=== PATIENT | female | born 1970 | race Caucasian/White ===

== ENCOUNTER 2016-06-18 11:54 | Observation (INO) | payer SELFPAY ==
--- NOTE | 2016-06-18 12:51 | ER Document Report ---
ED Medical Screen (RME) - General Chief Complaint: Blurred Vision Stated Complaint: DIZZY,NAUSEA,CONFUSION Mode of Arrival: Wheelchair Information source: Patient Notes: 45-year-old female presents with complaints of dizziness and vertigo out of body experience tingling in fingers and lips that started just prior to arrival. Patient admits to nausea as well I have greeted and performed a rapid initial assessment of this patient. A comprehensive ED assessment and evaluation of the patient, analysis of test results and completion of the medical decision making process will be conducted by additional ED providers. PHYSICAL EXAMINATION: GENERAL: Well-appearing, well-nourished and in no acute distress. HEAD: Atraumatic, normocephalic. EYES: Pupils equal round extraocular movements intact, conjunctiva are normal. ENT: Nares patent NECK: Normal range of motion LUNGS: No respiratory distress Musculoskeletal: Normal range of motion NEUROLOGICAL: Normal speech, normal gait. States speech was not normal prior to arrival PSYCH: Admits to feeling anxious SKIN: Warm, Dry, normal turgor, no rashes or lesions noted. TRAVEL OUTSIDE OF THE [place] IN LAST 30 DAYS: No - Related Data Allergies/Adverse Reactions: No Known Allergies Allergy (Verified 06/18/16 11:58) Past Medical History Renal/ Medical History: Denies: Hx Peritoneal Dialysis - Immunizations Hx Diphtheria, Pertussis, Tetanus Vaccination: Yes
[2016-06-18 13:46] LABS: ABSOLUTE EOSINOPHILS # (AUTO) 0.1 10^3/uL (0.0-0.6); ABSOLUTE LYMPHOCYTES (AUTO) 1.6 10^3/uL (0.5-4.7); ABSOLUTE MONOCYTES (AUTO) 0.5 10^3/uL (0.1-1.4); ABSOLUTE NEUT (AUTO) 4.5 10^3/uL (1.7-8.2); BASOPHILS % (AUTO) 0.5 % (0-2); EOSINOPHILS % (AUTO) 1.2 % (0-6); HEMATOCRIT 38.3 % (36.0-47.0); HEMOGLOBIN 13.1 g/dL (12.0-15.5); LYMPHOCYTES % (AUTO) 24.3 % (13-45); MEAN CORPUSCULAR HEMOGLOBIN 33.8 pg (27.0-33.4); MEAN CORPUSCULAR HGB CONC 34.3 g/dL (32.0-36.0); MEAN CORPUSCULAR VOLUME 99 fl (80-97); RED BLOOD COUNT 3.89 10^6/uL (3.72-5.28); RED CELL DISTRIBUTION WIDTH 13.9 % (11.5-14.0); WHITE BLOOD COUNT 6.7 10^3/uL (4.0-10.5)
[2016-06-18 14:03] LABS: ALANINE AMINOTRANSFERASE 22 U/L (9-52); ALBUMIN 4.3 g/dL (3.5-5.0); ALKALINE PHOSPHATASE 62 U/L (38-126); ANION GAP 12 (5-19); ASPARTATE AMINO TRANSFERASE 30 U/L (14-36); BILIRUBIN,DIRECT 0.1 mg/dL (0.0-0.4); BILIRUBIN,TOTAL 0.5 mg/dL (0.2-1.3); BLOOD UREA NITROGEN 12 mg/dL (7-20); CALCIUM 9.5 mg/dL (8.4-10.2); CARBON DIOXIDE 25 mmol/L (22-30); CHLORIDE 107 mmol/L (98-107); CREATINE KINASE 173 U/L (30-135); CREATININE RESULT 0.75 mg/dL (0.52-1.25); GLUCOSE 90 mg/dL (75-110); POTASSIUM 4.8 mmol/L (3.6-5.0); SODIUM 143.9 mmol/L (137-145); TOTAL PROTEIN 6.9 g/dL (6.3-8.2)
[2016-06-18 14:15] LABS: TROPONIN I < 0.012 ng/mL
--- NOTE | 2016-06-18 14:53 | ER Document Report ---
ED General - General Chief Complaint: Blurred Vision Stated Complaint: DIZZY,NAUSEA,CONFUSION Time seen by provider: 14:49 Mode of Arrival: Wheelchair Information source: Patient Notes: This is a 45-year-old female that presents to the emergency room with episodes of chest pain with left arm tingling. Patient also states that this morning she just "didn't feel right", was having difficulty with her speech, having blurry vision and nausea. Patient does describe having symptoms of "indigestion " at the time. TRAVEL OUTSIDE OF THE [place] IN LAST 30 DAYS: No - HPI Onset: Just prior to arrival Onset/Duration: Gradual Quality of pain: Dull Severity: Moderate Pain Level: 2 Associated symptoms: denies: Chills, Fever Exacerbated by: Denies Relieved by: Denies Similar symptoms previously: No Recently seen / treated by doctor: No - Related Data Allergies/Adverse Reactions: No Known Allergies Allergy (Verified 06/18/16 11:58) Past Medical History - General Information source: Patient - Social History Smoking Status: Never Smoker Cigarette use (# per day): No Chew tobacco use (# tins/day): No Frequency of alcohol use: None Drug Abuse: None Lives with: Family Family History: None Patient has suicidal ideation: No Patient has homicidal ideation: No - Medical History Medical History: Negative Renal/ Medical History: Denies: Hx Peritoneal Dialysis Traumatic Medical History: Reports: Other - Concussion this past February Infectious Medical History: Reports: None Past Surgical History: Reports: Other - Bilateral tubal ligation - Immunizations Hx Diphtheria, Pertussis, Tetanus Vaccination: Yes Review of Systems - Review of Systems Constitutional: denies: Chills, Fever EENT: No symptoms reported Cardiovascular: See HPI Respiratory: No symptoms reported Gastrointestinal: No symptoms reported Genitourinary: No symptoms reported Female Genitourinary: No symptoms reported Musculoskeletal: No symptoms reported Skin: No symptoms reported Hematologic/Lymphatic: No symptoms reported Neurological/Psychological: See HPI Physical Exam - Vital signs Vitals: Temp Pulse Resp BP Pulse Ox 97.3 F 89 23 H 112/78 100 06/18/16 11:59 06/18/16 11:59 06/18/16 11:59 06/18/16 11:59 06/18/16 11:59 Notes: Physical exam: GENERAL: 45-year-old female, alert and oriented 3, no acute distress. HEAD: Atraumatic, normocephalic. EYES: Pupils equal round and reactive to light, extraocular movements intact, sclera anicteric, conjunctiva are normal. ENT: TMs normal, nares patent, oropharynx clear without exudates. Moist mucous membranes. NECK: Normal range of motion, supple without lymphadenopathy or JVD. LUNGS: Breath sounds clear to auscultation bilaterally and equal. No wheezes rales or rhonchi. HEART: Regular rate and rhythm without murmurs, rubs or gallops. ABDOMEN: Soft, normoactive bowel sounds. No tenderness to palpation. No guarding, no rebound. No masses appreciated. EXTREMITIES: Normal range of motion, no pitting or edema. No clubbing or cyanosis. NEUROLOGICAL: Cranial nerves II through XII grossly intact. Normal speech, motor 5 over 5, sensory grossly intact, cerebellar good, reflexes symmetrical. NIH equals 0. PSYCH: Normal mood, normal affect. SKIN: Warm, Dry, normal turgor, no rashes or lesions noted. Course - Vital Signs Vital signs: Temp Pulse Resp BP Pulse Ox 98.1 F 51 L 16 103/52 L 100 06/18/16 22:54 06/18/16 22:54 06/18/16 22:54 06/18/16 22:54 06/18/16 22:54 - Laboratory Result Diagrams: 06/18/16 12:55 06/18/16 12:55 Laboratory results interpreted by me: 06/18/16 06/18/16 12:55 12:55 MCV 99 H MCH 33.8 H Creatine Kinase 173 H - Diagnostic Test Radiology reviewed: Image reviewed - EKG Interpretation by Me Rate: Normal Rhythm: NSR - EKG shows normal sinus rhythm with a ventricular rate of 59, no acute ST-T wave changes Discharge - Discharge Clinical Impression: chest pain, speech disorder Condition: Stable Disposition: ADMITTED OBSERVATION Admitting Provider: Hospitalist - Dr. Robbins Unit Admitted: Telemetry
[2016-06-18 15:42] LABS: APPEARANCE,URINE CLEAR; BILIRUBIN,URINE NEGATIVE (NEGATIVE); GLUCOSE, URINE NEGATIVE (NEGATIVE); KETONES,URINE NEGATIVE (NEGATIVE); LEUKOCYTE ESTERASE,URINE NEGATIVE (NEGATIVE); NITRITE,URINE NEGATIVE (NEGATIVE); PROTEIN,URINE NEGATIVE (NEGATIVE); URINE SPECIFIC GRAVITY 1.004; UROBILINOGEN,URINE NEGATIVE mg/dL (<2.0)
[2016-06-18 15:53] LABS: URINE BARBITURATES SCREEN NEGATIVE; URINE METHADONE SCREEN NEGATIVE; URINE OPIATES LOW NEGATIVE; URINE PHENCYCLIDINE SCREEN NEGATIVE
[2016-06-18] MEDS ORDERED: MORPHINE SULFATE 10 MG/ML INJ IV PRN (16:33)
[2016-06-18] MEDS ORDERED: NORMAL SALINE 1000 ML 1,000 ML IV PRN (16:33)
[2016-06-18] MEDS ORDERED: DIAZEPAM 5 MG TABLET PO PRN (16:33)
[2016-06-18] MEDS ORDERED: METOPROLOL TARTRATE PF/INJ 5 MG/5 ML SDV IV PRN (16:33)
[2016-06-18] MEDS ORDERED: ONDANSETRON HCL INJ/PF 4 MG/2 ML SDV IV PRN (16:33)
[2016-06-18] MEDS ORDERED: NITROGLYCERIN 0.4 MG/TAB 25 TAB/BOTTLE SL PRN (16:33)
[2016-06-18] MEDS ORDERED: LANSOPRAZOLE 15 MG TAB.RAP.DR PO ONE (16:33)
--- NOTE | 2016-06-18 17:12 | PDOC H&P ---
History of Present Illness Admission Date/PCP: 06/18/16 15:20 History of Present Illness: CLEM MEDINA is a 45 year old female who presented to the emergency department with complaints of not feeling right. Patient reports that over the past several weeks she's been having intermittent chest pain that is worsened when laying on both right and left shoulders. Patient reports that the pain is also worsened when she takes a deep breath. Patient reports it is improved with lying flat. Patient reports pain is sharp. There is no radiation. No shortness of breath, diaphoresis. Patient does have nausea. Patient reports that 2 days chest pain was also accompanied by some left arm tingling and numbness lasting a total of a half an hour. She has had several months of nausea and also reports a significant several year year long history with diarrhea. Reports that her diarrhea is mucoid and without hematochezia or melena. She also reports an inability to have complete fecal control. She denies any associated fevers or chills. Patient also complained with her episode today that she couldn't think straight and that she smelled ammonia strongly felt as though she was seeing things and having both audio and visual hallucinations. She reports that this lasted in total for 2-3 hours and subsequently resolved on its own. She is referred to the hospital service for evaluation of chest pain. Please no medication list is automatically generated by [employer] and does not reflect an accurate description of patient's medications. Patient reports to me that she takes no [id number] medications and no prescription medications. Past Medical History Past Medical History: Meningitis Medical History: None Past Surgical History Past Surgical History: Reports: Cholecystectomy, Tubal Ligation Social History Lives with: Spouse/Significant other Smoking Status: Never Smoker Frequency of Alcohol Use: Social Amount of Alcoholic Beverages Per Day: 5 drinks twice weekly Last Alcohol Use: 06/17/16 Hx Recreational Drug Use: No Hx Prescription Drug Abuse: No - Advance Directive Resuscitation Status: Full Code Surrogate healthcare decision maker:: Celena , Family History Family History: CVA, Hypertension Parental Family History Reviewed: Yes Children Family History Reviewed: Yes Sibling(s) Family History Reviewed.: Yes Medication/Allergy Home Medications: Ciprofloxacin HCl [Cipro 250 mg Tablet] 1 tab PO BID #6 tab 10/03/13 Allergies/Adverse Reactions: No Known Allergies Allergy (Verified 06/18/16 11:58) Review of Systems Constitutional: ABSENT: chills, fever(s), headache(s), weight gain, weight loss Eyes: PRESENT: visual disturbances Ears: ABSENT: hearing changes Cardiovascular: PRESENT: as per HPI, chest pain. ABSENT: dyspnea on exertion, edema, orthropnea, palpitations Respiratory: ABSENT: cough, hemoptysis Gastrointestinal: PRESENT: diarrhea, heartburn, nausea. ABSENT: abdominal pain , constipation, dysphagia, hematemesis, hematochezia, melena, vomiting Genitourinary: ABSENT: dysuria, hematuria Musculoskeletal: ABSENT: joint swelling Integumentary: ABSENT: rash, wounds Neurological: ABSENT: abnormal gait, abnormal speech, confusion, dizziness, focal weakness, syncope Psychiatric: ABSENT: anxiety, depression, homidical ideation, suicidal ideation Endocrine: ABSENT: cold intolerance, heat intolerance, polydipsia, polyuria Hematologic/Lymphatic: ABSENT: easy bleeding, easy bruising Physical Exam Vital Signs: Temp Pulse Resp BP Pulse Ox 17 117/90 H 100 06/18/16 15:05 06/18/16 15:05 06/18/16 15:05 General appearance: PRESENT: no acute distress, well-developed, well-nourished Head exam: PRESENT: atraumatic, normocephalic Eye exam: PRESENT: conjunctiva pink, EOMI, PERRLA. ABSENT: scleral icterus Ear exam: PRESENT: normal external ear exam Mouth exam: PRESENT: moist, tongue midline Neck exam: PRESENT: thyromegaly - Mild left-sided. ABSENT: JVD, lymphadenopathy , tracheal deviation Respiratory exam: PRESENT: chest wall tenderness, clear to auscultation amarjit. ABSENT: rales, rhonchi, wheezes Cardiovascular exam: PRESENT: RRR, +S1, +S2. ABSENT: diastolic murmur, gallop, rubs, systolic murmur Pulses: PRESENT: normal dorsalis pedis pul Vascular exam: PRESENT: normal capillary refill GI/Abdominal exam: PRESENT: normal bowel sounds, soft. ABSENT: distended, firm , guarding, mass, Sharma's sign, organolmegaly, rebound, rigid, tenderness Rectal exam: PRESENT: deferred Extremities exam: PRESENT: full ROM. ABSENT: calf tenderness, clubbing, pedal edema Neurological exam: PRESENT: alert, awake, oriented to person, oriented to place , oriented to time, oriented to situation, CN II-XII grossly intact. ABSENT: motor sensory deficit Psychiatric exam: PRESENT: appropriate affect, normal mood. ABSENT: homicidal ideation, suicidal ideation Skin exam: PRESENT: dry, intact, warm. ABSENT: cyanosis, rash Results Impressions: Head CT 06/18/16 12:50 IMPRESSION: NORMAL BRAIN CT WITHOUT CONTRAST. Chest X-Ray 06/18/16 14:54 IMPRESSION: Possible COPD. Otherwise negative single-view chest. Assessment & Plan - Diagnosis (1) Chest pain Is this a current diagnosis for this admission?: YesPlan: We'll place patient on observation and rule out for acute coronary syndrome. Given patient's lack of risk factors, doubt that this is likely secondary to acute coronary syndrome. Suspect this is secondary to costochondritis due to recent increase in exercise. Patient also does complain of indigestion. Will initiate patient on a PPI. (2) Diarrhea Qualifiers: Diarrhea type: unspecified type Qualified Code(s): R19.7 - Diarrhea , unspecified Is this a current diagnosis for this admission?: YesPlan: Will obtain stool specimens for C. difficile, culture, and fecal leukocytes. Have discussed with patient initiating amitriptyline at bedtime for this. Have also discussed with patient and outpatient evaluation by GI. Will send a celiac panel concern for malabsorption in light of patient's macrocytosis. (3) Paresthesia Is this a current diagnosis for this admission?: YesPlan: Possibly secondary to anxiety. Will begin patient on Valium when necessary. Patient also has a positive Spurling's maneuver recommend that she has is evaluated as an outpatient. - Time Time Spent: 50 to 70 Minutes Medications reviewed and adjusted accordingly: Yes Anticipated discharge: Home Within: within 24 hours - Inpatient Certification Based on my medical assessment, after consideration of the patient's comorbidities, presenting symptoms, or acuity I expect that the services needed warrant INPATIENT care.: No I certify that my determination is in accordance with my understanding of Medicare's requirements for reasonable and necessary INPATIENT services [42 CFR 412.3e].: No Post Hospital Care: [facility] [employer] Documentation
[2016-06-18 17:49] LABS: CREATINE KINASE MB 0.97 ng/mL (<4.55)
[2016-06-18 17:50] LABS: TROPONIN I < 0.012 ng/mL
[2016-06-18] MEDS: LANSOPRAZOLE 30 MG TAB.RAP.DR PO SCH (20:23)
[2016-06-18] MEDS ORDERED: ATORVASTATIN CALCIUM 10 MG TABLET PO SCH (22:00)
[2016-06-18] MEDS ORDERED: AMITRIPTYLINE HCL 10 MG TABLET PO SCH (22:00)
[2016-06-19 00:16] LABS: CREATINE KINASE MB 0.71 ng/mL (<4.55)
[2016-06-19 00:24] LABS: TROPONIN I < 0.012 ng/mL
[2016-06-19] MEDS: LANSOPRAZOLE 30 MG TAB.RAP.DR PO SCH (05:22)
[2016-06-19 05:39] LABS: CHOLESTEROL 120.57 mg/dL (0-200); Direct HDL 83 mg/dL (>40); TRIGLYCERIDES 58 mg/dL (<150)
[2016-06-19 05:45] LABS: CREATINE KINASE MB 0.57 ng/mL (<4.55)
[2016-06-19 06:17] LABS: TROPONIN I < 0.012 ng/mL
[2016-06-19 06:21] LABS: DIRECT LDL < 30 mg/dL (<100)
[2016-06-19] MEDS ORDERED: DIPHENOXYLATE HCL/ATROP SULF 2.5-0.025 MG TABLET PO PRN (07:35)
[2016-06-19] MEDS ORDERED: PSYLLIUM SEED-SF 5.85 GM PACKET PO SCH ×2 (07:45)
[2016-06-19 09:15] VITALS: BP 107/60
[2016-06-19] MEDS ORDERED: CELECOXIB 200 MG CAPSULE PO SCH (10:00)
[2016-06-19] MEDS ORDERED: ASPIRIN 325 MG TABLET, ENT COATED PO SCH (10:00)
[2016-06-19] MEDS ORDERED: LISINOPRIL 5 MG TABLET PO SCH (10:00)
[2016-06-19] MEDS ORDERED: MULTIVITAMINS W-IRON TABLET, CHEWABLE PO SCH (10:00)
[2016-06-19] MEDS ORDERED: LACTOBACILLUS ACIDOPHILUS 250 MG TAB PO SCH (10:00)
--- NOTE | 2016-06-19 10:22 | EKG REPORT ---
SEVERITY:- NORMAL ECG - SINUS RHYTHM : Confirmed by: Mony Tripp 19-Jun-2016 10:21:53
--- NOTE | 2016-06-19 18:45 | PDOC DISCHARGE SUMMARY ---
General - Admit/Disc Date/PCP Admission Date/Primary Care Provider: 06/18/16 16:33 Discharge Date: 06/19/16 - Discharge Diagnosis (1) Chest pain Is this a current diagnosis for this admission?: Yes (2) Diarrhea Is this a current diagnosis for this admission?: Yes (3) Paresthesia Is this a current diagnosis for this admission?: Yes (4) Costochondritis, acute Is this a current diagnosis for this admission?: Yes (5) Adult celiac disease Is this a current diagnosis for this admission?: No - Additional Information Resuscitation Status: Full Code Discharge Diet: Regular Discharge Activity: Activity As Tolerated, Slowly Increase Activity Home Medications: Acidoph/L.bulg/Bif.b/S.thermop [Bacid Caplet] 1 each PO DAILY #30 tablet Amitriptyline HCl [Elavil 10 mg Tablet] 10 mg PO QHS #30 tablet 06/19/16 Celecoxib [Celebrex 200 mg Capsule] 200 mg PO BID #30 capsule 06/19/16 Diphenoxylate HCl/Atrop Sulf [Lomotil 2.5 mg Tablet] 1 tab PO QIDP PRN #30 tablet 06/19/16 Ranitidine HCl [Zantac 75 mg Tablet] 75 mg PO BIDP PRN #60 tablet 06/19/16 History of Present Illness History of Present Illness: CLEM MEDINA is a 45 year old female who presented to the emergency department with complaints of not feeling right. Patient reports that over the past several weeks she's been having intermittent chest pain that is worsened when laying on both right and left shoulders. Patient reports that the pain is also worsened when she takes a deep breath. Patient reports it is improved with lying flat. Patient reports pain is sharp. There is no radiation. No shortness of breath, diaphoresis. Patient does have nausea. Patient reports that 2 days chest pain was also accompanied by some left arm tingling and numbness lasting a total of a half an hour. She has had several months of nausea and also reports a significant several year year long history with diarrhea. Reports that her diarrhea is mucoid and without hematochezia or melena. She also reports an inability to have complete fecal control. She denies any associated fevers or chills. Patient also complained with her episode today that she couldn't think straight and that she smelled ammonia strongly felt as though she was seeing things and having both audio and visual hallucinations. She reports that this lasted in total for 2-3 hours and subsequently resolved on its own. She is referred to the hospital service for evaluation of chest pain. Hospital Course Hospital Course: Patient was placed on observation and ruled out for acute coronary syndrome. In light of patient's lack of risk factors, stress test is deferred to outpatient status. Patient's cholesterol is remarkably good. Likely patient's chest pain which is reproducible on exam secondary costochondritis due to recent increase in physical activity. Patient also described indigestion and was advised to use Zantac [id number] when necessary. She is advised to follow with her primary care physician for a referral to GI, as patient has had a year-long history of diarrhea. She was given prescription for Lomotil. I have advised patient at this time to follow a lactose-free gluten-free diet and keep a food journal to present to GI. She is advised to return for any worsening symptoms. She is advised that it is not uncommon in her age group for malignancy to occur. She is advised to obtain a colonoscopy. Patient is discharged in stable condition. Physical Exam Vital Signs: Temp Pulse Resp BP Pulse Ox 98.6 F 62 16 107/60 100 06/19/16 09:10 06/19/16 09:10 06/19/16 09:10 06/19/16 09:10 06/19/16 09:10 Intake & Output 06/18/16 06/19/16 06/20/16 06:59 06:59 06:59 Intake Total 1765 Balance 1765 Weight 60.8 kg Exam: General: Awake alert and oriented x3, no acute respiratory distress HEENT: AT/NC, PERRL, EOMI, oropharynx is moist, pink, no scleral icterus, no conjunctival injection Neck: No JVD, trachea midline Chest: Clear to auscultation bilaterally, no wheezes rhonchi or rales CV: Regular rate and rhythm, normal S1 and S2, no murmur, rub, or gallop Abdomen: Soft, nontender to palpation, nondistended, active bowel sounds; no rebound, rigidity, or guarding Extremities: No cyanosis, clubbing or edema Neuro: Cranial nerves II through XII are grossly intact without focal deficits; awake alert and oriented x3 Psych: Normal mood and affect Results Laboratory Results: 06/18/16 06/18/16 06/19/16 21:15 21:15 05:02 Triglycerides 58 Cholesterol 120.57 LDL Cholesterol Direct < 30 VLDL Cholesterol 12.0 HDL Cholesterol 83 Stool Occult Blood NEGATIVE Stool for White Cells RARE H 06/18/16 06/18/16 06/18/16 17:00 17:00 23:15 Creatine Kinase 150 H CK-MB (CK-2) 0.97 0.71 Troponin I < 0.012 < 0.012 06/19/16 05:02 Creatine Kinase CK-MB (CK-2) 0.57 Troponin I < 0.012 Impressions: Head CT 06/18/16 12:50 IMPRESSION: NORMAL BRAIN CT WITHOUT CONTRAST. Chest X-Ray 06/18/16 14:54 IMPRESSION: Possible COPD. Otherwise negative single-view chest. Qualifiers PATEINT BEING DISCHARGED WITH ANY OF THE FOLLOWING DIAGNOSIS?: No Plan Time Spent: Less than 30 Minutes
[2016-06-21 14:25] LABS: DEAMIDATED GLIADIN IGA AB 3 units (0-19); DEAMIDATED GLIADIN IGG AB 5 units (0-19); IMMUNOGLOBULIN A 2 232 mg/dL (87-352); T-TRANSGLUTAMINASE (TTG) IGG <2 U/mL (0-5)
== END 2016-06-19 10:01 | disposition home or self-care (01) ==
LOC: ER 11:54 → EH 15:20 → UNDOADMOB 15:20 → EH 16:33 → 4N 18:07
PROVIDERS: ADMIT Family Medicine; ATTEND Family Medicine
DX: R07.9 Chest pain, unspecified (principal); R19.7 Diarrhea, unspecified; R20.9 Unspecified disturbances of skin sensation; M94.0 Chondrocostal junction syndrome [Tietze]; K90.0 Celiac disease; R20.0 Anesthesia of skin; R11.0 Nausea; R44.0 Auditory hallucinations; R44.1 Visual hallucinations; R43.8 Other disturbances of smell and taste; K30 Functional dyspepsia; R12 Heartburn; E01.0 Iodine-deficiency related diffuse (endemic) goiter; H53.8 Other visual disturbances; R47.9 Unspecified speech disturbances; K92.89 Other specified diseases of the digestive system; Z86.61 Personal history of infections of the central nervous system; Z98.51 Tubal ligation status; Z90.49 Acquired absence of other specified parts of digestive tract; Z82.49 Family history of ischemic heart disease and other diseases of the circulatory system; Z87.820 Personal history of traumatic brain injury
CPT/HCPCS: 93005; 99285; 36415 ×2; 87045; 89055; 87205; 82553 ×2; 82962; 82550; 84702; 84443; 85025; 82272; 80053; 81001; 84484 ×2; 83520 ×5; 80307; 87493 ×2; 80061; 71010; 70450; 93010; G0378 ×3; J3490 ×2; J7030

== ENCOUNTER 2016-09-08 10:19 | Emergency (ER) | payer OTHER ==
[2016-09-08 10:24] VITALS: BP 133/76
[2016-09-08] MEDS ORDERED: LIDOCAINE 1% INJ-PF (10 MG/ML) 30 ML SDV INJ ONE (10:35)
[2016-09-08] MEDS ORDERED: DIPH/PERTUSS(ACELL)/TETANUS VAC/PF 0.5 ML SYR (>=10YO) IM ONE (10:35)
--- NOTE | 2016-09-08 10:37 | ER Document Report ---
HPI - HPI Patient complains to provider of: ankle lac Onset: Just prior to arrival Onset/Duration: Sudden Quality of pain: No pain Pain Level: Denies Context: Patient dropped a porcelain bowl cutting her left lateral ankle. Patient is uncertain when her last tetanus immunization was. Associated Symptoms: Other - Left ankle laceration Exacerbated by: Movement Relieved by: Denies Similar symptoms previously: No Recently seen / treated by doctor: No - ROS ROS below otherwise negative: Yes Systems Reviewed and Negative: Yes All other systems reviewed and negative - CONSTITUTIONAL Constitutional: DENIES: Fever - NEURO Neurology: DENIES: Weakness - GASTROINTESTINAL Gastrointestinal: DENIES: Nausea - REPRODUCTIVE Reproductive: DENIES: : - DERM Skin Color: Normal Skin Problems: Laceration Past Medical History - General Information source: Patient - Social History Smoking Status: Never Smoker Frequency of alcohol use: Occasional Drug Abuse: None Occupation: None Lives with: Family Family History: None Patient has suicidal ideation: No Patient has homicidal ideation: No - Medical History Medical History: Other - Celiac Renal/ Medical History: Denies: Hx Peritoneal Dialysis Past Surgical History: Reports: Hx Cholecystectomy, Hx Tubal Ligation, Other - Bilateral tubal ligation - Immunizations Hx Diphtheria, Pertussis, Tetanus Vaccination: Yes Vertical Provider Document - CONSTITUTIONAL Agree With Documented VS: Yes Exam Limitations: No Limitations General Appearance: WD/WN, No Apparent Distress - INFECTION CONTROL TRAVEL OUTSIDE OF THE [place] IN LAST 30 DAYS: No - HEENT HEENT: Atraumatic, Normocephalic - RESPIRATORY Respiratory: No Respiratory Distress O2 Sat by Pulse Oximetry: 99 - CARDIOVASCULAR Pulses: Normal: Dorsalis pedis - MUSCULOSKELETAL/EXTREMETIES Musculoskeletal/Extremeties: MAEW, FROM - NEURO Level of Consciousness: Awake, Alert, Appropriate Motor/Sensory: No Motor Deficit - DERM Integumentary: Warm, Dry, Laceration - Patient with 2 lacerations to lateral aspect of left ankle over the lateral malleolar area. Inferior laceration 1 cm diameter, superior laceration 2 cm Course - Vital Signs Vital signs: Temp Pulse Resp BP Pulse Ox 97.7 F 64 18 133/76 H 99 09/08/16 10:23 09/08/16 10:23 09/08/16 10:23 09/08/16 10:23 09/08/16 10:23 Procedures - Laceration/Wound Repair Left Ankle Wound length (cm): 2 Wound's Depth, Shape: Linear Laceration pre-procedure: Other - Chlorhexidine Wound explored: Clean, No foreign body removed Wound Debrided: Minimal Wound Repaired With: Sutures Suture Size/Type: 5:0, Prolene Number of Sutures: 4 Post-procedure wound care: Sterile dressing applied Post-procedure NV exam normal: Yes Complications: No Notes: 09/08/16 11:30 Superior 2 cm laceration closed with 3 sutures, inferior 1 cm laceration closed with 1 suture Discharge - Discharge Clinical Impression: Laceration of ankle Qualifiers: Encounter type: initial encounter Laterality: left Qualified Code(s): S91.012A - Laceration without foreign body, left ankle, initial encounter Condition: Stable Disposition: HOME, SELF-CARE Instructions: Antibiotic Ointment Protection ([facility]), Laceration Care ([facility]), Tetanus Immunization Given ([facility]) Additional Instructions: Return immediately for any new or worsening symptoms Followup with your primary care provider, call tomorrow to make a followup appointment Suture removal in 12 days Referrals: [facility] [Provider Group] - Follow up as needed
== END 2016-09-08 11:36 | disposition home or self-care (01) ==
LOC: ER 10:19
PROC: 0HQLXZZ Repair Left Lower Leg Skin, External Approach (ICD-10-PCS; principal; 2016-09-08)
DX: S91.012A Laceration without foreign body, left ankle, initial encounter (principal); W26.8XXA Contact with other sharp object(s), not elsewhere classified, initial encounter
CPT/HCPCS: 99282; 90471; 90715; 12002; J3490

== ENCOUNTER 2016-10-22 12:30 | Emergency (ER) | payer OTHER ==
[2016-10-22 12:36] VITALS: BP 145/60
[2016-10-22] MEDS ORDERED: DIAZEPAM INJ 10 MG/2 ML DISP.SYRIN IM ONE (13:18)
[2016-10-22] MEDS ORDERED: DEXAMETHASONE SOD PHOS INJ 10 MG/1 ML VIAL IM ONE (13:18)
--- NOTE | 2016-10-22 13:20 | ER Document Report ---
ED General - General Chief Complaint: Low Back Pain Stated Complaint: BACK PAIN Time Seen by Provider: 10/22/16 12:57 Mode of Arrival: Ambulatory Information source: Patient Notes: 46-year-old female presents with complaints of low back pain over the past 2 weeks. Patient denies any heavy lifting but does note that she was working on her lawn when it first started. Patient denies any cauda equina concerns. Patient does note sciatic nerve pain. Patient notes that she has been trying to stretch it but the pain does not seem to improve TRAVEL OUTSIDE OF THE [place] IN LAST 30 DAYS: No - HPI Onset: Other Onset/Duration: Persistent Quality of pain: Achy Severity: Mild Pain Level: 2 Associated symptoms: Body/muscle aches Exacerbated by: Movement, Walking Relieved by: Denies Similar symptoms previously: No Recently seen / treated by doctor: No - Related Data Allergies/Adverse Reactions: butorphanol [From Stadol] Allergy (Verified 10/22/16 13:13) ketorolac [From Toradol] Allergy (Verified 10/22/16 13:03) Past Medical History - Social History Smoking Status: Never Smoker Cigarette use (# per day): No Chew tobacco use (# tins/day): No Smoking Education Provided: No Frequency of alcohol use: None Drug Abuse: None Family History: None Renal/ Medical History: Denies: Hx Peritoneal Dialysis Past Surgical History: Reports: Hx Cholecystectomy, Hx Tubal Ligation, Other - Bilateral tubal ligation - Immunizations Hx Diphtheria, Pertussis, Tetanus Vaccination: Yes Review of Systems - Review of Systems Notes: REVIEW OF SYSTEMS: CONSTITUTIONAL : Denies fever, chills, or sweats. Denies recent illness. EENT: Denies eye, ear, throat, or mouth pain or symptoms. Denies nasal or sinus congestion or discharge. Denies throat, tongue, or mouth swelling or difficulty swallowing. CARDIOVASCULAR: Denies chest pain. Denies palpitations or racing or irregular heart beat. Denies ankle edema. RESPIRATORY: Denies cough, cold, or chest congestion. Denies shortness of breath, difficulty breathing, or wheezing. GASTROINTESTINAL: Denies abdominal pain or distention. Denies nausea, vomiting , or diarrhea. Denies blood in vomitus, stools, or per rectum. Denies black, tarry stools. Denies constipation. GENITOURINARY: Denies difficulty urinating, painful urination, burning, frequency, blood in urine, or discharge. FEMALE GENITOURINARY: Denies vaginal bleeding, heavy or abnormal periods, irregular periods. Denies vaginal discharge or odor. MUSCULOSKELETAL: Admits to low back pain SKIN: Denies rash, lesions or sores. HEMATOLOGIC : Denies easy bruising or bleeding. LYMPHATIC: Denies swollen, enlarged glands. NEUROLOGICAL: Denies confusion or altered mental status. Denies passing out or loss of consciousness. Denies dizziness or lightheadedness. Denies headache. Denies weakness or paralysis or loss of use of either side. Denies problems with gait or speech. Denies sensory loss, numbness, or tingling. Denies seizures. PSYCHIATRIC: Denies anxiety or stress. Denies depression, suicidal ideation, or homicidal ideation. ALL OTHER SYSTEMS REVIEWED AND NEGATIVE. PHYSICAL EXAMINATION: GENERAL: Well-appearing, well-nourished and in no acute distress. HEAD: Atraumatic, normocephalic. EYES: Pupils equal round and reactive to light, extraocular movements intact, conjunctiva are normal. ENT: Nares patent, oropharynx clear without exudates. Moist mucous membranes. NECK: Normal range of motion, supple without lymphadenopathy LUNGS: Breath sounds clear to auscultation bilaterally and equal. No wheezes rales or rhonchi. HEART: Regular rate and rhythm without murmurs ABDOMEN: Soft, nontender, nondistended abdomen. No guarding, no rebound. No masses appreciated. Female : deferred Musculoskeletal: Reproducible back tenderness generalized lumbar region with movement sidebending and palpation. Patient has sciatic nerve tenderness bilateral NEUROLOGICAL: Cranial nerves grossly intact. Normal speech, normal gait. Normal sensory, motor exams PSYCH: Normal mood, normal affect. SKIN: Warm, Dry, normal turgor, no rashes or lesions noted. Dictation was performed using [employer] voice recognition software Physical Exam - Vital signs Vitals: Temp Pulse Resp BP Pulse Ox 98.3 F 59 L 15 145/60 H 100 10/22/16 12:33 10/22/16 12:33 10/22/16 12:33 10/22/16 12:33 10/22/16 12:33 Course - Re-evaluation Re-evalutation: 10/22/16 20:22 Patient has no signs of cauda equina, she is otherwise well-appearing no distress. I will treat her with medications to help resolve the spasm and otherwise she is stable for discharge to follow-up with her primary care physician or to return immediately if there is any worsening symptoms Patient is able to ambulate with no difficulty After performing a Medical Screening Examination, I estimate there is LOW risk for EXPANDING OR RUPTURED ABDOMINAL AORTIC ANEURYSM, CAUDA EQUINA SYNDROME, EPIDURAL MASS LESION, or HERNIATED DISK CAUSING SEVERE SPINAL STENOSIS, thus I consider the discharge disposition reasonable. I have reevaluated this patient multiple times and no significant life threatening changes are noted. The patient and I have discussed the diagnosis and risks, and we agree with discharging home and close follow-up. We also discussed returning to the Emergency Department immediately if new or worsening symptoms occur with the understanding that symptoms and presentations can change. We have discussed the symptoms which are most concerning (e.g., saddle anesthesia, urinary or bowel incontinence or retention, changing or worsening pain) that necessitate immediate return. - Vital Signs Vital signs: Temp Pulse Resp BP Pulse Ox 98.3 F 59 L 15 145/60 H 100 10/22/16 12:33 10/22/16 12:33 10/22/16 12:33 10/22/16 12:33 10/22/16 12:33 Discharge - Discharge Clinical Impression: Muscle spasm Back pain Qualifiers: Back pain location: low back pain Chronicity: acute Back pain laterality: bilateral Sciatica presence: with sciatica Sciatica laterality: bilateral sciatica Qualified Code(s): M54.42 - Lumbago with sciatica, left side; M54.41 - Lumbago with sciatica, right side Condition: Stable Disposition: HOME, SELF-CARE Instructions: Low Back Pain ([facility]) Additional Instructions: Follow up with your physician tomorrow for further care or return to the ED IMMEDIATELY if symptoms worsen or new concerns occur. If you cannot afford to follow up with your primary care physician a list of low cost clinics have been provided at the end of your discharge papers as well. Prescriptions: Diazepam [Valium 5 mg Tablet] 5 mg PO QIDP PRN #15 tablet PRN Reason: Prednisone [Deltasone 20 mg Tablet] 3 tab PO DAILY 5 Days tablet
== END 2016-10-22 13:30 | disposition home or self-care (01) ==
LOC: ER 12:30
DX: M62.838 Other muscle spasm (principal); M54.42 Lumbago with sciatica, left side; M54.41 Lumbago with sciatica, right side; Z90.49 Acquired absence of other specified parts of digestive tract; Z98.51 Tubal ligation status
CPT/HCPCS: 99283; 96372; J3360; J1100

== ENCOUNTER 2017-08-02 08:50 | Emergency (ER) | payer SELFPAY ==
--- NOTE | 2017-08-02 09:58 | ER Document Report ---
ED Neck/Back Problem - General Chief Complaint: Back Pain Stated Complaint: BACK PAIN Time Seen by Provider: 08/02/17 09:10 Mode of Arrival: Ambulatory Information source: Patient Notes: 46-year-old female presents to ED for complaint of back pain started 3 weeks ago. She states she has been stretching and using ibuprofen and Tylenol with no relief. She states she cannot lay on the right due to the pain. She states her period is very irregular and she is thinks that her last period was like in in the febrile given April. She states that was no injury. TRAVEL OUTSIDE OF THE [place] IN LAST 30 DAYS: No - HPI Patient complains to provider of: Pain, Lower back Onset: Other - About 3 weeks Onset: Gradual Timing: Waxing and waning Quality of pain: Sharp Pain Level: 4 Context: Bending, Lifting, Turning Recent injury: No Associated symptoms: Radiation to leg, Lower back pain. denies: Constipation, Fever, Incontinence, Numbness/tingling, Sensory loss, Sweaty, Unable to urinate , Upper back pain Exacerbated by: Movement of trunk Relieved by: Nothing Similar symptoms previously: Yes Recently seen / treated by doctor: No - Related Data Allergies/Adverse Reactions: butorphanol [From Stadol] Allergy (Verified 08/02/17 08:52) ketorolac [From Toradol] Allergy (Verified 08/02/17 08:52) Past Medical History - General Information source: Patient - Social History Smoking Status: Never Smoker Cigarette use (# per day): No Chew tobacco use (# tins/day): No Smoking Education Provided: No Frequency of alcohol use: Social Drug Abuse: None Occupation: No work Lives with: Family Family History: None Patient has suicidal ideation: No Patient has homicidal ideation: No - Past Medical History Cardiac Medical History: Reports: Other - Actual valve prolapse resolved Pulmonary Medical History: Reports: None Neurological Medical History: Reports: None Endocrine Medical History: Reports: None Renal/ Medical History: Reports: None Malignancy Medical History: Reports: None GI Medical History: Reports: Other - Celiac Musculoskeltal Medical History: Reports None Skin Medical History: Reports None Psychiatric Medical History: Reports: None Traumatic Medical History: Reports: None Infectious Medical History: Reports: None Past Surgical History: Reports: Hx Breast Surgery - Augmentation, Hx Cholecystectomy, Hx Tubal Ligation - Immunizations Hx Diphtheria, Pertussis, Tetanus Vaccination: Yes Review of Systems - Review of Systems Constitutional: No symptoms reported EENT: No symptoms reported Cardiovascular: No symptoms reported Respiratory: No symptoms reported Gastrointestinal: No symptoms reported Genitourinary: No symptoms reported Female Genitourinary: No symptoms reported Musculoskeletal: Back pain, Muscle pain, Muscle stiffness Skin: No symptoms reported Hematologic/Lymphatic: No symptoms reported Neurological/Psychological: Numbness, Tingling -: Yes All other systems reviewed and negative Physical Exam - Vital signs Vitals: Temp Pulse Resp BP Pulse Ox 98.2 F 65 18 138/91 H 99 08/02/17 09:09 08/02/17 09:09 08/02/17 09:09 08/02/17 09:09 08/02/17 09:09 Interpretation: Normal - General General appearance: Appears well, Alert - HEENT Head: Normocephalic, Atraumatic Eyes: Normal Pupils: PERRL - Respiratory Respiratory status: No respiratory distress Chest status: Nontender Breath sounds: Normal Chest palpation: Normal - Cardiovascular Rhythm: Regular Heart sounds: Normal auscultation Murmur: No - Abdominal Inspection: Normal Distension: No distension Bowel sounds: Normal Tenderness: Nontender Organomegaly: No organomegaly - Back Back: Normal, Tender. No: Deformity/step-off, CVA tenderness, Vertebra tenderness, Scars, Scoliosis, Wounds - Extremities General upper extremity: Normal inspection, Nontender, Normal color, Normal ROM , Normal temperature General lower extremity: Normal inspection, Nontender, Normal color, Normal ROM , Normal temperature, Normal weight bearing. No: Avril's sign - Neurological Neuro grossly intact: Yes Cognition: Normal Orientation: AAOx4 [place] Coma Scale Eye Opening: Spontaneous [place] Coma Scale Verbal: Oriented George Coma Scale Motor: Obeys Commands George Coma Scale Total: 15 Speech: Normal Motor strength normal: LUE, RUE, LLE, RLE Sensory: Normal - Psychological Associated symptoms: Normal affect, Normal mood - Skin Skin Temperature: Warm Skin Moisture: Dry Skin Color: Normal Course - Re-evaluation Re-evalutation: 08/02/17 21:44 Discussed x-rays with patient and written report of x-rays given to patient. Patient was treated with dexamethasone and Lidoderm patch. After performing a Medical Screening Examination, I estimate there is LOW risk for INTRACRANIAL HEMORRHAGE, UNSTABLE SPINE FRACTURE, CENTRAL CORD SYNDROME, CAUDA EQUINA, THORACIC AORTIC DISSECTION, PNEUMOTHORAX, PERFORATED BOWEL, RUPTURED ABDOMINAL AORTIC ANEURYSM, ACUTE TENDON RUPTURE, COMPARTMENT SYNDROME, or OPEN FRACTURE, thus I consider the discharge disposition reasonable. Also, there is no evidence or peritonitis, sepsis, or toxicity. I have reevaluated this patient multiple times and no significant life threatening changes are noted. The patient and I have discussed the diagnosis and risks, and we agree with discharging home to follow-up with their primary doctor with the understanding that symptoms and presentations can change. We also discussed returning to the Emergency Department immediately if new or worsening symptoms occur. We have discussed the symptoms which are most concerning (e.g., bloody stool, fever, changing or worsening pain, vomiting) that necessitate immediate return. - Vital Signs Vital signs: Temp Pulse Resp BP Pulse Ox 97.9 F 58 L 16 137/82 H 99 08/02/17 12:17 08/02/17 12:17 08/02/17 12:17 08/02/17 12:17 08/02/17 12:17 - Laboratory Result Diagrams: 08/02/17 09:30 Laboratory results interpreted by me: 08/02/17 09:30 AST 74 H ALT 53 H - Diagnostic Test Radiology reviewed: Image reviewed, Reports reviewed Discharge - Discharge Clinical Impression: Back pain Qualifiers: Back pain location: low back pain Chronicity: unspecified Back pain laterality : right Sciatica presence: with sciatica Sciatica laterality: sciatica of right side Qualified Code(s): M54.41 - Lumbago with sciatica, right side Condition: Stable Disposition: HOME, SELF-CARE Instructions: Family Physicians / Practices Additional Instructions: LOW BACK PAIN: Three out of every four people will have an episode of disabling back pain during their lifetime. Most commonly the pain is due to straining of the muscles and ligaments in the low back. Usual treatment includes: (1) Rest on a firm surface. Avoid lying on your stomach. (2) Ice pack the painful area. After a few days, gentle heat may be used intermittently to relax the area, or ice packs can be continued. (3) Medication may be needed -- muscle relaxers and antiinflammatory medicines are commonly used. (4) As the back improves, exercises are prescribed to strengthen the back and abdominal muscles. Your doctor will advise you on the proper care for your back at each stage in your recovery. You may be better in a few days -- or healing may take several weeks. If new symptoms of a "herniated disc" (radiation of pain, numbness, or tingling down the back of the leg or weakness in the leg) occur, you should be re-examined. Further testing may be necessary. MUSCLE RELAXERS: Muscle relaxing medications are usually prescribed for acute muscle spasm or injury to the neck and back. They are often combined with antiinflammatory pain medication for increased relief. You may stop the muscle relaxer when the pain and stiffness have improved. Start the medication again if spasms recur. Muscle relaxers may cause drowsiness, especially with the first dose. Do not operate machinery or drive while under the effects of the medication. Most muscle relaxers last up to 24 hours. Do not combine the medication with alcohol. ICE PACKS: Apply ice packs frequently against the painful area. Many different schedules are recommended, such as "20 minutes on, 20 minutes off" or "one hour ice, two hours rest." If you need to work, you may need to go longer between ice treatments. You should plan to have the area ice packed AT LEAST one fourth of the time. The ice should be applied over the wrap, tape, or splint, or over a layer of cloth -- not directly against the skin. Some ice bags have a built-in cloth and can be put directly on the skin. WARM PACKS: After approximately two days, apply gentle heat (such as a heating pad or hot water bottle) for about 20 to 30 minutes about every two hours -- at least four times daily. Warmth and elevation will help you make a more rapid recovery , and will ease the pain considerably. Do not use HOT heat, and never apply heat for longer than 30 minutes. The continuous heat can invisibly damage skin and muscles -- even when no burn is seen on the surface. Damaged muscles can make you MORE sore. STEROID MEDICATION: You have been given a medicine of the cortisone/steroid class. This medication is used to control inflammation or allergy. It is usually only given for a short period of time, until the acute process subsides. There are usually no side effects from short-term use of cortisone-like medications. Some persons feel an increased sense of well-being and are not sleepy at bedtime. Long-term use of cortisone medications is best avoided, unless required for a severe condition. If your condition does not remit, or relapses after the course of corticosteroid medication, you should consult your physician. FOLLOW-UP CARE: If you have been referred to a physician for follow-up care, call the physician s office for an appointment as you were instructed or within the next two days. If you experience worsening or a significant change in your symptoms, notify the physician immediately or return to the Emergency Department at any time for re-evaluation. Prescriptions: Ibuprofen 600 mg PO Q8HP PRN #20 tablet PRN Reason: Lidocaine [Lidoderm 5% (700 mg) Transdermal Patch] 1 patch TP DAILY #30 adh..patch Prednisone [Deltasone 20 mg Tablet] 3 tab PO DAILY 4 Days tablet Forms: Elevated Blood Pressure
[2017-08-02 10:01] LABS: APPEARANCE,URINE SLIGHTLY-CLOUDY; BILIRUBIN,URINE NEGATIVE (NEGATIVE); COLOR,URINE YELLOW; GLUCOSE, URINE NEGATIVE (NEGATIVE); KETONES,URINE NEGATIVE (NEGATIVE); LEUKOCYTE ESTERASE,URINE NEGATIVE (NEGATIVE); NITRITE,URINE NEGATIVE (NEGATIVE); PROTEIN,URINE NEGATIVE (NEGATIVE); URINE SPECIFIC GRAVITY 1.019; UROBILINOGEN,URINE NEGATIVE mg/dL (<2.0)
[2017-08-02 10:21] LABS: ALANINE AMINOTRANSFERASE 53 U/L (9-52); ALBUMIN 4.3 g/dL (3.5-5.0); ALKALINE PHOSPHATASE 52 U/L (38-126); ANION GAP 10 (5-19); ASPARTATE AMINO TRANSFERASE 74 U/L (14-36); BILIRUBIN,DIRECT 0.2 mg/dL (0.0-0.4); BILIRUBIN,TOTAL 0.6 mg/dL (0.2-1.3); BLOOD UREA NITROGEN 16 mg/dL (7-20); CALCIUM 9.7 mg/dL (8.4-10.2); CARBON DIOXIDE 29 mmol/L (22-30); CHLORIDE 104 mmol/L (98-107); GLUCOSE 91 mg/dL (75-110); POTASSIUM 4.4 mmol/L (3.6-5.0); SODIUM 143.2 mmol/L (137-145); TOTAL PROTEIN 7.4 g/dL (6.3-8.2)
--- NOTE | 2017-08-02 11:22 | RADIOLOGY REPORT (SQ) ---
EXAM DESCRIPTION: PELVIS AP COMPLETED DATE/TIME: 08/02/2017 11:10 am REASON FOR STUDY: right low back pain pain for 3 weeks in the right lower back/ sacrum region withou t specific injury COMPARISON: Lumbar spine films same date NUMBER OF VIEWS: One view TECHNIQUE: AP Pelvis LIMITATIONS: None. FINDINGS: MINERALIZATION: Normal. HIPS: No acute fracture or dislocation. No worrisome bone lesions. PELVIS AND SACRUM: No acute fracture or dislocation. No worrisome bone lesions. PUBIS AND ISCHIUM: No acute fracture. LOWER LUMBAR SPINE: No significant findings as visualized. SOFT TISSUES: No findings. OTHER: No other significant finding. IMPRESSION: NEGATIVE STUDY OF THE PELVIS. TECHNICAL DOCUMENTATION: JOB ID: [id number]- All Rights Reserved Reading location - IP/workstation name: [email or web address]
--- NOTE | 2017-08-02 11:23 | RADIOLOGY REPORT (SQ) ---
EXAM DESCRIPTION: L SPINE WHOLE COMPLETED DATE/TIME: 08/02/2017 11:10 am REASON FOR STUDY: low right back pain COMPARISON: AP pelvis same date NUMBER OF VIEWS: Five views including obliques. TECHNIQUE: AP, lateral, oblique, and sacral radiographic images acquired of the lumbar spine. LIMITATIONS: None. FINDINGS: MINERALIZATION: Normal. SEGMENTATION: Normal. No transitional anatomy. ALIGNMENT: Normal. VERTEBRAE: Maintained height. No fracture or worrisome bone lesion. DISCS: Preserved height. No significant osteophytes or end plate irregularity. POSTERIOR ELEMENTS: Pedicles and facets are intact. No pars defect or posterior arch defects. HARDWARE: None in the spine. Clips right upper quadrant post cholecystectomy PARASPINAL SOFT TISSUES: Normal. PELVIS: Intact as visualized. No fractures or worrisome bone lesions. SI joints intact. OTHER: No other significant finding. IMPRESSION: NORMAL 5 VIEW LUMBAR SPINE. TECHNICAL DOCUMENTATION: JOB ID: [id number] [employer]- All Rights Reserved Reading location - IP/workstation name: [email or web address]
[2017-08-02] MEDS ORDERED: LIDOCAINE 5% (700 MG) TRANSDERMAL ADH..PATCH TP ONE (11:45)
[2017-08-02] MEDS ORDERED: DEXAMETHASONE SOD PHOS INJ 10 MG/1 ML VIAL IM ONE (11:45)
[2017-08-02 12:18] VITALS: BP 137/82
== END 2017-08-02 12:17 | disposition home or self-care (01) ==
LOC: ER 08:50
DX: M54.41 Lumbago with sciatica, right side (principal); N92.6 Irregular menstruation, unspecified; Z88.5 Allergy status to narcotic agent; Z88.8 Allergy status to other drugs, medicaments and biological substances
CPT/HCPCS: 99283; 96372; 36415; 84703; 80053; 81001; 72110; 72170; J1100

== ENCOUNTER 2018-10-31 12:19 | Emergency (ER) | payer SELFPAY ==
[2018-10-31] MEDS ORDERED: MECLIZINE HCL 25 MG TABLET PO ONE (13:05)
--- NOTE | 2018-10-31 13:08 | ER Document Report ---
ED Medical Screen (RME) - General Chief Complaint: Dizziness Stated Complaint: DIZZINESS/VOMITING/DIARRHEA Time Seen by Provider: 10/31/18 12:58 Mode of Arrival: Ambulatory Information source: Patient Notes: This 48-year-old female presents emergency department with complaints of severe dizziness when she lays down, when she has sex, when she tries to work out. Patient reports symptoms for the past week worsening. She reports that she will try to play outside with kids and become dizzy. Denies past medical history. Denies cardiac disease. Denies shortness of breath denies chest pain. 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 Denies trauma. No complaints of nausea vomiting diarrhea. Reports that she also has neck pain which is gotten worse over the last couple months. Respiratory rate even unlabored, patient talking in clear sentences no confusion. I have greeted and performed a rapid initial assessment of this patient. A comprehensive ED assessment and evaluation of the patient, analysis of test results and completion of the medical decision making process will be conducted by additional ED providers. Dictation of this chart was performed using voice recognition software; therefore, there may be some unintended grammatical errors. TRAVEL OUTSIDE OF THE [place] IN LAST 30 DAYS: No - Related Data Allergies/Adverse Reactions: butorphanol [From Stadol] Allergy (Verified 08/02/17 08:52) ketorolac [From Toradol] Allergy (Verified 08/02/17 08:52) Past Medical History - Social History Frequency of alcohol use: Occasional Drug Abuse: Marijuana Renal/ Medical History: Denies: Hx Peritoneal Dialysis Past Surgical History: Reports: Hx Breast Surgery - Augmentation, Hx Cholecystectomy, Hx Tubal Ligation, Other - Bilateral tubal ligation - Immunizations Hx Diphtheria, Pertussis, Tetanus Vaccination: Yes Physical Exam - Vital signs Vitals: Temp Pulse Resp BP Pulse Ox 97.7 F 60 18 121/63 98 10/31/18 12:26 10/31/18 12:10/31/18 12:10/31/18 12:10/31/18 12:26 Course - Vital Signs Vital signs: Temp Pulse Resp BP Pulse Ox 97.7 F 60 18 121/63 98 10/31/18 12:26 10/31/18 12:26 10/31/18 12:10/31/18 12:10/31/18 12:26
[2018-10-31 13:41] LABS: ABSOLUTE BASOPHILS # (AUTO) 0.1 10^3/uL (0.0-0.2); ABSOLUTE EOSINOPHILS # (AUTO) 0.1 10^3/uL (0.0-0.6); ABSOLUTE LYMPHOCYTES (AUTO) 2.3 10^3/uL (0.5-4.7); ABSOLUTE MONOCYTES (AUTO) 0.4 10^3/uL (0.1-1.4); ABSOLUTE NEUT (AUTO) 4.1 10^3/uL (1.7-8.2); BASOPHILS % (AUTO) 0.8 % (0-2); EOSINOPHILS % (AUTO) 1.6 % (0-6); HEMATOCRIT 39.6 % (36.0-47.0); HEMOGLOBIN 13.6 g/dL (12.0-15.5); LYMPHOCYTES % (AUTO) 32.9 % (13-45); MEAN CORPUSCULAR HEMOGLOBIN 33.5 pg (27.0-33.4); MEAN CORPUSCULAR HGB CONC 34.4 g/dL (32.0-36.0); MEAN CORPUSCULAR VOLUME 97 fl (80-97); MONOCYTES % (AUTO) 5.2 % (3-13); PLATELET COUNT 226 10^3/uL (150-450); RED BLOOD COUNT 4.06 10^6/uL (3.72-5.28); RED CELL DISTRIBUTION WIDTH 13.5 % (11.5-14.0); SEGMENTED NEUTROPHILS % (AUTO) 59.5 % (42-78); TOTAL CELLS COUNTED % (AUTO) 100 %; WHITE BLOOD COUNT 6.9 10^3/uL (4.0-10.5)
[2018-10-31 13:43] LABS: APPEARANCE,URINE SLIGHTLY-CLOUDY; BILIRUBIN,URINE NEGATIVE (NEGATIVE); COLOR,URINE YELLOW; GLUCOSE, URINE NEGATIVE (NEGATIVE); KETONES,URINE NEGATIVE (NEGATIVE); LEUKOCYTE ESTERASE,URINE NEGATIVE (NEGATIVE); NITRITE,URINE NEGATIVE (NEGATIVE); PROTEIN,URINE NEGATIVE (NEGATIVE); URINE SPECIFIC GRAVITY 1.008; UROBILINOGEN,URINE NEGATIVE mg/dL (<2.0)
[2018-10-31 14:02] LABS: ALBUMIN 4.6 g/dL (3.5-5.0); ALKALINE PHOSPHATASE 69 U/L (38-126); ANION GAP 6 (5-19); ASPARTATE AMINO TRANSFERASE 39 U/L (14-36); BILIRUBIN,TOTAL 0.6 mg/dL (0.2-1.3); BLOOD UREA NITROGEN 15 mg/dL (7-20); CALCIUM 9.8 mg/dL (8.4-10.2); CARBON DIOXIDE 30 mmol/L (22-30); CHLORIDE 102 mmol/L (98-107); GLUCOSE 88 mg/dL (75-110); POTASSIUM 5.2 mmol/L (3.6-5.0); TOTAL PROTEIN 7.5 g/dL (6.3-8.2)
--- NOTE | 2018-10-31 16:55 | ER Document Report ---
ED Dizziness/Weakness - General Chief Complaint: Dizziness Stated Complaint: DIZZINESS/VOMITING/DIARRHEA Time Seen by Provider: 10/31/18 12:58 Primary Care Provider: [facility] [Provider Group] - Follow up as needed [facility] [Provider Group] - Follow up as needed Mode of Arrival: Ambulatory Notes: RME NOTE: This 48-year-old female presents emergency department with complaints of severe dizziness when she lays down, when she has sex, when she tries to work out. Bradley noble reports symptoms for the past week worsening. She reports that she will try to play outside with kids and become dizzy. Denies past medical history. Denies cardiac disease. Denies shortness of breath denies chest pain. 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 Denies trauma. No complaints of nausea vomiting diarrhea. Reports that she also has neck pain which is gotten worse over the last couple months. Respiratory rate even unlabored, patient talking in clear sentences no confusion. MY HPI: Patient's generalized neck pain is in bilateral trapezius muscles, patient states she does a lot of exercising and lifts weights at the gym. No nuchal rigidity noted, no fevers, no URI symptoms. Patient voices her episodes of dizziness are typically when she attempts to get up in the morning, and also when she leans forward to pick something up. Patient's denying a headache at this time. TRAVEL OUTSIDE OF THE [place] IN LAST 30 DAYS: No - Related Data Allergies/Adverse Reactions: butorphanol [From Stadol] Allergy (Verified 08/02/17 08:52) ketorolac [From Toradol] Allergy (Verified 08/02/17 08:52) Past Medical History - General Information source: Patient - Social History Smoking Status: Former Smoker Frequency of alcohol use: Occasional Drug Abuse: Marijuana Family History: None Patient has suicidal ideation: No Patient has homicidal ideation: No Renal/ Medical History: Denies: Hx Peritoneal Dialysis Past Surgical History: Reports: Hx Breast Surgery - Augmentation, Hx Cholecystectomy, Hx Tubal Ligation, Other - Bilateral tubal ligation - Immunizations Hx Diphtheria, Pertussis, Tetanus Vaccination: Yes Review of Systems - Review of Systems Constitutional: denies: Fever EENT: No symptoms reported Cardiovascular: No symptoms reported Respiratory: No symptoms reported Gastrointestinal: No symptoms reported Genitourinary: No symptoms reported Female Genitourinary: No symptoms reported Musculoskeletal: No symptoms reported Skin: No symptoms reported Hematologic/Lymphatic: No symptoms reported Neurological/Psychological: See HPI Physical Exam - Vital signs Vitals: Temp Pulse Resp BP Pulse Ox 97.7 F 60 18 121/63 98 10/31/18 12:26 10/31/18 12:10/31/18 12:10/31/18 12:10/31/18 12:26 - Notes Notes: GENERAL: Alert, interacts well. No acute distress. HEAD: Normocephalic, atraumatic. EYES: Pupils equal, round, and reactive to light. Extraocular movements intact. ENT: Oral mucosa moist, tongue midline. Nares patent, TM's intact. NECK: Full range of motion. Supple. Trachea midline. No nuchal rigidity. LUNGS: Clear to auscultation bilaterally, no wheezes, rales, or rhonchi. No respiratory distress. HEART: Regular rate and rhythm. No murmur ABDOMEN: Soft, non-tender. Non-distended. Bowel sounds present in all 4 quadrants. EXTREMITIES: Moves all 4 extremities spontaneously. No edema, normal radial and dorsalis pedis pulses bilaterally. No cyanosis. 5 out of 5 strength noted all 4 extremities. BACK: no cervical, thoracic, lumbar midline tenderness. No saddle anesthesia, normal distal neurovascular exam. NEUROLOGICAL: Alert and oriented x3. Normal speech. cranial nerves II through XII grossly intact PSYCH: Normal affect, normal mood. SKIN: Warm, dry, normal turgor. No rashes or lesions noted. Course - Re-evaluation Re-evalutation: 10/31/18 16:56 Bertha-Hallpike maneuver performed. During the patient to the right and left elicited nystagmus. Patient also voiced extreme dizziness. Patient states she feels better when she is sitting up and still. Laboratory 10/31/18 10/31/18 10/31/18 13:18 13:18 13:18 WBC 6.9 RBC 4.06 Hgb 13.6 Hct 39.6 MCV 97 MCH 33.5 H MCHC 34.4 RDW 13.5 Plt Count 226 Lymph % (Auto) 32.9 [place] % (Auto) 5.2 Eos % (Auto) 1.6 Baso % (Auto) 0.8 Absolute Neuts (auto) 4.1 Absolute Lymphs (auto) 2.3 Absolute Monos (auto) 0.4 Absolute Eos (auto) 0.1 Absolute Basos (auto) 0.1 Seg Neutrophils % 59.5 Sodium 138.0 Potassium 5.2 H Chloride 102 Carbon Dioxide 30 Anion Gap 6 BUN 15 Creatinine 0.77 Est GFR ( Amer) > 60 Est GFR (MDRD) Non-Af > 60 Glucose 88 Calcium 9.8 Magnesium 2.1 Total Bilirubin 0.6 Direct Bilirubin 0.0 Neonat Total Bilirubin Not Reportable Neonat Direct Bilirubin Not Reportable Neonat Indirect Bili Not Reportable AST 39 H ALT 21 Alkaline Phosphatase 69 Total Protein 7.5 Albumin 4.6 Urine Color YELLOW Urine Appearance SLIGHTLY-CLOUDY Urine pH 9.0 Ur Specific [place] 1.008 Urine Protein NEGATIVE Urine Glucose (UA) NEGATIVE Urine Ketones NEGATIVE Urine Blood NEGATIVE Urine Nitrite NEGATIVE Urine Bilirubin NEGATIVE Urine Urobilinogen NEGATIVE Ur Leukocyte Esterase NEGATIVE Urine WBC (Auto) 1 Urine RBC (Auto) 0 Squamous Epi Cells Auto 3 Urine Mucus (Auto) RARE Urine Ascorbic Acid 20 H Urine HCG, Qual NEGATIVE Discussed likely diagnosis of benign positional vertigo with her at bedside. Discussed Rakesh's maneuver as well as use of Antivert. Discussed following up at [facility] or [facility] as patient is uninsured. - Vital Signs Vital signs: Temp Pulse Resp BP Pulse Ox 97.7 F 60 18 121/63 98 10/31/18 12:26 10/31/18 12:26 10/31/18 12:26 10/31/18 12:26 10/31/18 12:26 - Laboratory Result Diagrams: 10/31/18 13:18 10/31/18 13:18 Laboratory results interpreted by me: 10/31/18 10/31/18 10/31/18 13:18 13:18 13:18 MCH 33.5 H Potassium 5.2 H AST 39 H Urine Ascorbic Acid 20 H Discharge - Discharge Clinical Impression: Vertigo Condition: Stable Disposition: HOME, SELF-CARE Instructions: Dizziness ([facility]), Meclizine ([facility]), Vertigo ([facility]) Additional Instructions: As we discussed you have been seen and treated in the emergency department for vertigo. This is generalized dizziness. You should look online for Rakesh maneuver. This will help with your vertigo symptoms. I also provided phone nu mbers for primary care providers include [facility]. Please return to the emergency department for any further concerns. Prescriptions: Meclizine HCl [Antivert 25 mg Tablet] 25 mg PO TID PRN #21 tablet PRN Reason: Referrals: [facility] [Provider Group] - Follow up as needed [facility] [Provider Group] - Follow up as needed
[2018-10-31 17:37] VITALS: BP 126/73
--- NOTE | 2018-10-31 22:22 | EKG REPORT ---
SEVERITY:- BORDERLINE ECG - SINUS RHYTHM PROBABLE LEFT ATRIAL ABNORMALITY : Confirmed by: Jesika Hernandez MD 31-Oct-2018 22:21:48
== END 2018-10-31 17:48 | disposition home or self-care (01) ==
LOC: ER 12:19
DX: R42 Dizziness and giddiness (principal); R11.10 Vomiting, unspecified; R19.7 Diarrhea, unspecified; M54.6 Pain in thoracic spine; X50.9XXA Other and unspecified overexertion or strenuous movements or postures, initial encounter; Z87.891 Personal history of nicotine dependence
CPT/HCPCS: 36415; 80053; 81001; 81025; 83735; 85025; 93005; 93010; 99284

== ENCOUNTER 2019-04-08 20:44 | Emergency (ER) | payer SELFPAY ==
[2019-04-08] MEDS ORDERED: METOCLOPRAMIDE HCL ORAL SOLN 10 MG/10 ML UDCUP PO ONE (20:51)
[2019-04-08] MEDS ORDERED: MAG HYDROX/AL HYDROX/SIMETH SUSP 30 ML UDCUP PO ONE (20:51)
[2019-04-08] MEDS ORDERED: LIDOCAINE 2% VISCOUS SOLN 15 ML UDCUP PO ONE (20:51)
[2019-04-08] MEDS ORDERED: FAMOTIDINE INJ/PF 20 MG/2 ML SDV IV ONE (20:52)
[2019-04-08] MEDS ORDERED: ONDANSETRON HCL INJ/PF 4 MG/2 ML SDV IV ONE (20:52)
--- NOTE | 2019-04-08 20:56 | ER Document Report ---
ED Medical Screen (RME) - General Chief Complaint: Breathing Difficulty Stated Complaint: DIFFICULTY BREATHING Time Seen by Provider: 04/08/19 20:48 Notes: Patient is a 48-year-old female with a history of celiac disease who presents emergency department with a chief complaint of epigastric pain. Patient reports about 15 minutes ago developing an acute onset of epigastric pain. Patient reports she has never experienced anything like this before. She states that this occurred after eating a gluten-free johnna pizza. Patient reports she has had her gallbladder removed. Patient reports that the pain radiates up and is causing shortness of breath due to severity. Patient reports this does radiate into her mid back. Denies a history of gastric ulcers. TRAVEL OUTSIDE OF THE [place] IN LAST 30 DAYS: No - Related Data Allergies/Adverse Reactions: butorphanol [From Stadol] Allergy (Verified 08/02/17 08:52) ketorolac [From Toradol] Allergy (Verified 08/02/17 08:52) Past Medical History Renal/ Medical History: Denies: Hx Peritoneal Dialysis Past Surgical History: Reports: Hx Breast Surgery - Augmentation, Hx Cholecystectomy, Hx Tubal Ligation, Other - Bilateral tubal ligation - Immunizations Hx Diphtheria, Pertussis, Tetanus Vaccination: Yes Physical Exam - Vital signs Vitals: Pulse Resp BP Pulse Ox 85 25 H 171/114 H 100 04/08/19 20:49 04/08/19 20:49 04/08/19 20:49 04/08/19 20:49 - Abdominal Inspection: Normal Distension: No distension Bowel sounds: Normal Tenderness: Tender - + epigastric tenderness Organomegaly: No organomegaly Course - Re-evaluation Re-evalutation: 04/08/19 20:55 We will give the patient a GI cocktail as she developed acute onset of epigastric pain after eating pizza. We will also do basic labs, chest x-ray, EKG is she is having epigastric pain that radiates into her mid back. Patient is noted to have hypertension in triage and elevated blood pressure. Patient is also in acute distress with her epigastric discomfort. I have greeted and performed a rapid initial assessment of this patient. A comprehensive ED assessment and evaluation of the patient, analysis of test results and completion of the medical decision making process will be conducted by additional ED providers. 04/08/19 20:56 - Vital Signs Vital signs: Temp Pulse Resp BP Pulse Ox 85 25 H 171/114 H 100 04/08/19 20:49 04/08/19 20:49 04/08/19 20:49 04/08/19 20:49
--- NOTE | 2019-04-08 21:45 | RADIOLOGY REPORT (SQ) ---
EXAM DESCRIPTION: XR CHEST 2 VIEWS COMPLETED DATE/TME: 04/08/2019 20:54 CLINICAL HISTORY: 48 years, Female, Chest pain, Shortness of breath, epigastric pain COMPARISON: 06/18/2016 chest NUMBER OF VIEWS: 2 TECHNIQUE: 2 view chest LIMITATIONS: None. FINDINGS: Heart size normal. Lungs clear. No pneumothorax IMPRESSION: Negative chest copyright 2010 [facility] [email or web address]- All Rights Reserved
[2019-04-08 21:47] LABS: ABSOLUTE EOSINOPHILS # (AUTO) 0.2 10^3/uL (0.0-0.6); ABSOLUTE LYMPHOCYTES (AUTO) 2.7 10^3/uL (0.5-4.7); ABSOLUTE MONOCYTES (AUTO) 0.6 10^3/uL (0.1-1.4); ABSOLUTE NEUT (AUTO) 5.1 10^3/uL (1.7-8.2); BASOPHILS % (AUTO) 0.4 % (0-2); EOSINOPHILS % (AUTO) 1.9 % (0-6); HEMOGLOBIN 13.1 g/dL (12.0-15.5); LYMPHOCYTES % (AUTO) 31.2 % (13-45); MEAN CORPUSCULAR HEMOGLOBIN 34.5 pg (27.0-33.4); MEAN CORPUSCULAR HGB CONC 34.4 g/dL (32.0-36.0); MEAN CORPUSCULAR VOLUME 100 fl (80-97); MONOCYTES % (AUTO) 6.7 % (3-13); PLATELET COUNT 197 10^3/uL (150-450); RED BLOOD COUNT 3.79 10^6/uL (3.72-5.28); RED CELL DISTRIBUTION WIDTH 13.2 % (11.5-14.0); SEGMENTED NEUTROPHILS % (AUTO) 59.8 % (42-78); TOTAL CELLS COUNTED % (AUTO) 100 %; WHITE BLOOD COUNT 8.6 10^3/uL (4.0-10.5)
[2019-04-08 22:09] LABS: ALBUMIN 4.2 g/dL (3.5-5.0); ALKALINE PHOSPHATASE 72 U/L (38-126); ANION GAP 7 (5-19); ASPARTATE AMINO TRANSFERASE 219 U/L (14-36); BILIRUBIN,TOTAL 0.5 mg/dL (0.2-1.3); BLOOD UREA NITROGEN 17 mg/dL (7-20); CALCIUM 9.5 mg/dL (8.4-10.2); CARBON DIOXIDE 27 mmol/L (22-30); CHLORIDE 104 mmol/L (98-107); GLUCOSE 115 mg/dL (75-110); POTASSIUM 4.2 mmol/L (3.6-5.0); TOTAL PROTEIN 6.9 g/dL (6.3-8.2)
--- NOTE | 2019-04-09 04:01 | ER Document Report ---
ED General - General Chief Complaint: Abdominal Pain Stated Complaint: DIFFICULTY BREATHING Time Seen by Provider: 04/08/19 20:48 Notes: 48-year-old female presents emergency department complaining of sudden onset of severe stabbing squeezing pain in her epigastrium shortly after she ate a gluten-free johnna pizza. Patient states the pain was so severe that she was doubled over in pain and was nauseated. It hurt worse when her tried to touch it and it radiated to her back. Denies any vomiting, admits diarrhea a few days ago that was red but did not see any blood in it. She has had her gallbladder removed. That was back in 1997 for gallstones, states this does not feel the same at all. Does admit to drinking at least 1 drink every day and on the weekends drinking 4-5 drinks. Patient does have a history of celiac disease. TRAVEL OUTSIDE OF THE [place] IN LAST 30 DAYS: No - Related Data Allergies/Adverse Reactions: butorphanol [From Stadol] Allergy (Verified 08/02/17 08:52) ketorolac [From Toradol] Allergy (Verified 08/02/17 08:52) Home Medications: b100, vit c Past Medical History - General Information source: Patient - Social History Smoking Status: Never Smoker Chew tobacco use (# tins/day): No Frequency of alcohol use: Social Drug Abuse: Marijuana Family History: None Patient has suicidal ideation: No Patient has homicidal ideation: No Renal/ Medical History: Denies: Hx Peritoneal Dialysis Past Surgical History: Reports: Hx Breast Surgery - Augmentation, Hx Cholecystectomy, Hx Tubal Ligation, Other - Bilateral tubal ligation - Immunizations Hx Diphtheria, Pertussis, Tetanus Vaccination: Yes Review of Systems - Review of Systems Constitutional: No symptoms reported Cardiovascular: No symptoms reported Gastrointestinal: See HPI -: Yes All other systems reviewed and negative Physical Exam - Vital signs Vitals: Pulse Resp BP Pulse Ox 85 25 H 171/114 H 100 04/08/19 20:49 04/08/19 20:49 04/08/19 20:49 04/08/19 20:49 Interpretation: Hypertensive, Tachypneic Notes: Vital signs normalized by the time I saw her. - Notes Notes: Exam performed after GI cocktail. GENERAL: Alert, interacts well. No acute distress. HEAD: Normocephalic, atraumatic EYES: Pupils equal, round and reactive to light, extraocular movements intact. ENT: Oral mucosa moist, tongue midline. NECK: Full range of motion, supple, trachea midline. LUNGS: Clear to auscultation bilaterally, no wheezes, rales or rhonchi, no respiratory distress. HEART: Regular rate and rhythm, no murmurs, gallops, rubs. ABDOMEN: Soft, minimal epigastric tenderness to palpation, nondistended, bowel sounds present in all 4 quadrants. EXTREMITIES: Moves all 4 extremities spontaneously, no edema, radial and dorsalis pedis pulses 2/4 bilaterally. No cyanosis. NEUROLOGICAL: Alert and oriented x3, normal speech. RECTAL: Soft brown stool, heme-negative. PSYCH: Normal mood, normal affect. SKIN: Warm, Dry, normal turgor, no rashes or lesions noted. Course - Re-evaluation Re-evalutation: 04/09/19 03:57 CBC unremarkable, CMP shows elevated AST at 219, elevated ALT at 84, alk phos normal, total and direct bilirubin normal. Lipase normal. Chest x-ray shows no acute process. EKG is nonischemic. Patient was given GI cocktail from triage, states that within 5 minutes it had completely relieved her pain. Patient is feeling completely better. Discussed with patient that she does have some elevated LFTs and given her frequency of drinking she should quit drinking and then have them rechecked in approximately 2 weeks. Also discussed that the association of her pain with food makes gastritis versus ulcer a possibility. I am less in favor of ulcer as this is the first time she has had these symptoms and she has not had steadily increasing pain for some time. Patient will be started on Pepcid twice a day as well as Carafate. Patient will follow-up with her primary care physician as an outpatient for repeat LFTs and possible referral to GI. She will return to the emergency department for blood in her stool, blood in her vomit or return of severe pain. - Vital Signs Vital signs: Temp Pulse Resp BP Pulse Ox 97.9 F 85 25 H 171/114 H 100 04/08/19 20:59 04/08/19 20:49 04/08/19 20:49 04/08/19 20:49 04/08/19 20:49 - Laboratory Result Diagrams: 04/08/19 21:15 04/08/19 21:15 Laboratory results interpreted by me: 02/17/20 02/17/20 21:15 21:15 MCV 100 H MCH 34.5 H Glucose 115 H AST 219 H ALT 84 H - EKG Interpretation by Me Additional EKG results interpreted by me: 04/09/19 03:59 EKG shows sinus rhythm at a rate of 68, normal axis, normal intervals, no ST segment elevations or depressions, no T wave inversions per my interpretation. Discharge - Discharge Clinical Impression: Epigastric abdominal pain, Elevated LFTs Condition: Stable Disposition: HOME, SELF-CARE Additional Instructions: Gastritis Your symptoms likely came from an inflammation of the stomach called gastritis or possibly an ulcer. This commonly causes upper abdominal pain, nausea, and vomiting. In severe cases, bleeding of the stomach lining can occur. Gastritis can be caused by bacteria or viruses, alcohol, or stomach- irritating drugs. Begin with sips of clear liquids. Take increasing amounts of fluid over the first 24 hours. Then start small amounts of bland foods (such as dry toast, applesauce, mashed potato). Gradually resume your usual diet. You should take Pepcid 20 mg twice a day for the next 2 weeks. You should also use Carafate 1 g before every meal and before sleeping. This will help coat your stomach and protect it. You must take any other medications an hour before taking the Carafate or else your body will not absorb the Carafate. Avoid aspirin, caffeine, tobacco, and alcohol. If the abdominal pain worsens, or there is evidence of major bleeding in the stomach (such as black, tarry stool, bloody or black vomit, or lightheadedness), you should return immediately. Call the doctor if you aren't improved in 24 to 36 hours. Please have your liver enzymes rechecked in approximately 2 weeks after you have not had anything alcoholic to drink in 2 weeks. Prescriptions: Sucralfate [Carafate 1 gm Tablet] 1 gm PO ACHS #60 tablet
[2019-04-09 04:03] VITALS: BP 132/73
--- NOTE | 2019-04-09 18:53 | EKG REPORT ---
SEVERITY:- BORDERLINE ECG - SINUS RHYTHM PROBABLE LEFT ATRIAL ABNORMALITY : Confirmed by: Mony Tripp 09-Apr-2019 18:52:48
== END 2019-04-09 04:35 | disposition home or self-care (01) ==
LOC: ER 20:44
DX: R10.13 Epigastric pain (principal); R74.0 Nonspecific elevation of levels of transaminase and lactic acid dehydrogenase [LDH]; R11.0 Nausea; K90.0 Celiac disease; Z90.49 Acquired absence of other specified parts of digestive tract; Z88.8 Allergy status to other drugs, medicaments and biological substances; Z88.6 Allergy status to analgesic agent; Z88.5 Allergy status to narcotic agent; Z79.899 Other long term (current) drug therapy
CPT/HCPCS: 36415; 83690; 85025; 80053; 84484; 71046; 93005; 93010; J3490; 99285